=== PATIENT | male | born 1985 | race Caucasian/White ===

== ENCOUNTER 2021-02-17 07:21 | Emergency (ER) | payer OTHER ==
[~2021-02-17] VITALS: Ht 170.2 cm; Wt 68.2 kg
[2021-02-17 07:26] VITALS: Ht 170.2 cm; Wt 68.2 kg
[2021-02-17] MEDS ORDERED: [UNRECOGNIZED DRUG - OTHER] (07:27)
[2021-02-17] MEDS ORDERED: SERTRALINE (07:27)
[2021-02-17 10:34] VITALS: BP 161/100
== END 2021-02-17 10:33 | disposition short-term general hospital (02) ==
LOC: D.ER 07:21
DX: S32.401A Unspecified fracture of right acetabulum, initial encounter for closed fracture (principal); V89.0XXA Person injured in unspecified motor-vehicle accident, nontraffic, initial encounter; Y93.9 Activity, unspecified; Y92.9 Unspecified place or not applicable